=== PATIENT | female | born 1965 ===

== ENCOUNTER → 2017-05-31 | Outpatient (CLI) | payer MEDICAID ==
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
== END ==
PROVIDERS: ATTEND Family Medicine
DX: Z46.89 Encounter for fitting and adjustment of other specified devices (principal); S06.2X9D Diffuse traumatic brain injury with loss of consciousness of unspecified duration, subsequent encounter